=== PATIENT | female | born 1980 | race Caucasian/White ===

== ENCOUNTER 2017-06-14 15:16 | Outpatient (CLI) | payer OTHER, BC ==
--- NOTE | 2017-06-15 10:32 | XRAY Report ---
RIGHT FOOT: 06/14/2017 COMPARISON: None. INDICATION: Right foot pain. FINDINGS: There is a metallic foreign body about the heel. Normal alignment. No evidence of acute fracture. No degenerative findings in other regards. IMPRESSION: RIGHT HEEL FOREIGN BODY. OTHERWISE, NEGATIVE RIGHT FOOT. JOB #: [id number] EXT JOB #: [id number] [facility]
== END 2017-06-14 15:17 | disposition home or self-care (01) ==
LOC: DI.N 15:16
PROVIDERS: ATTEND Physician Assistant Medical
DX: M79.5 Residual foreign body in soft tissue (principal)

== ENCOUNTER 2019-06-30 13:14 | Outpatient (CLI) | payer OTHER, BC ==
--- NOTE | 2019-07-01 12:32 | XRAY Report ---
Reason: SHOULDER PAIN, LEFT Procedure Date: 06/30/2019 Accession Number: [id number] / [id number] Procedure: XRN - Elbow 3 View LT CPT Code: Final Report FULL RESULT: EXAM: LEFT ELBOW RADIOGRAPHY EXAM DATE: 06/30/2019 01:45 PM. CLINICAL HISTORY: Fall on left elbow and shoulder. Pain. COMPARISON: None. TECHNIQUE: 3 views. FINDINGS: Bones: Normal. No fractures or bone lesions. Joints: Normal. No effusion. No subluxation. Soft Tissues: Normal. No soft tissue swelling. IMPRESSION: Normal elbow radiography. [facility]
--- NOTE | 2019-07-01 12:32 | XRAY Report ---
Reason: SHOULDER PAIN, LEFT Procedure Date: 06/30/2019 Accession Number: [id number] / [id number] Procedure: XRN - Shoulder 3 View LT CPT Code: Final Report FULL RESULT: EXAM: LEFT SHOULDER RADIOGRAPHY EXAM DATE: 06/30/2019 01:45 PM. CLINICAL HISTORY: Shoulder pain, left. COMPARISON: None. TECHNIQUE: 3 views. FINDINGS: Bones: Normal. No fracture or bone lesion. Joints: The glenohumeral and acromioclavicular joints are normal. Soft tissues: The visualized hemithorax is unremarkable. No soft tissue swelling. IMPRESSION: Normal shoulder radiography. [facility]
== END 2019-06-30 13:15 | disposition home or self-care (01) ==
LOC: DI.N 13:14
PROVIDERS: ATTEND Physician Assistant Medical
DX: M25.512 Pain in left shoulder (principal); M25.522 Pain in left elbow

== ENCOUNTER 2022-05-25 01:26 | Emergency (ER) | payer OTHER ==
--- NOTE | 2022-05-25 01:46 | ED Physician Documentation ---
PD HPI NVD - Stated complaint Stated Complaint: N/V/ ABD PX - Chief complaint Chief Complaint: Abd Pain - History obtained from History obtained from: Patient - History of Present Illness Timing - onset: Enter time (14:00) Timing - details: Abrupt onset Associated symptoms: Fever, Abdominal pain Improved by: Meds (zofran) Worsened by: Eating Recently seen: Not recently seen - Additonal information Additional information: sudden onset of generalized myalgias at approximately 14:00, subsequently developed nausea and vomiting and epigastric pain with fever Tmax 104. She took zofran with mild improvement Review of Systems Constitutional: reports: Fever Cardiac: reports: Reviewed and negative Respiratory: reports: Reviewed and negative GI: reports: Abdominal Pain, Nausea, Vomiting. denies: Constipation, Diarrhea PD PAST MEDICAL HISTORY - Present Medications Home Medications: Ambulatory Orders Medication Instructions Recorded Confirmed Desvenlafaxine Succinate [Pristiq] 25 mg PO DAILY 05/25/22 05/25/22 FLUoxetine [PROzac] 10 mg PO DAILY 05/25/22 05/25/22 Promethazine [Phenergan] 25 mg PO Q6H PRN #10 tab 05/25/22 traZODone [Desyrel] 50 mg PO DAILY 05/25/22 05/25/22 - Allergies Allergies/Adverse Reactions: Allergies Allergy/AdvReac Type Severity Reaction Status Date / Time No Known Drug Allergies Allergy Verified 05/25/22 01:41 PD ED PE NORMAL - Vitals Vital signs reviewed: Yes - General General: Alert and oriented X 3, No acute distress, Well developed/nourished - Neck Neck: Supple, no meningeal sign - Cardiac Cardiac: RRR, No murmur - Respiratory Respiratory: No respiratory distress, Clear bilaterally - Abdomen Abdomen: Normal bowel sounds, Soft, Non tender Results - Vitals Vitals: Oxygen O2 Source Room air - Labs Labs: Laboratory Tests 05/25/22 05/25/22 05/25/22 01:42 01:47 01:52 WBC 5.3 RBC 4.53 Hgb 14.9 Hct 42.5 MCV 93.8 MCH 32.9 H MCHC 35.1 RDW 12.9 Plt Count 174 MPV 11.0 H Neut # (Auto) 4.3 Lymph # (Auto) 0.6 L [place] # (Auto) 0.3 Eos # (Auto) 0.1 Baso # (Auto) 0.0 Absolute Nucleated RBC 0.00 Nucleated RBC % 0.0 Sodium Potassium Chloride Carbon Dioxide Anion Gap BUN Creatinine Estimated GFR (MDRD) Glucose Calcium Total Bilirubin AST ALT Alkaline Phosphatase Total Protein Albumin Globulin Albumin/Globulin Ratio Lipase Urine Color DARK YELLOW Urine Clarity CLEAR Urine pH 6.0 Ur Specific [place] >=1.030 H Urine Protein TRACE Urine Glucose (UA) NEGATIVE Urine Ketones 40 H Urine Occult Blood NEGATIVE Urine Nitrite NEGATIVE Urine Bilirubin NEGATIVE Urine Urobilinogen 0.2 (NORMAL) Ur Leukocyte Esterase NEGATIVE Ur Microscopic Review NOT INDICATED Urine Culture Comments NOT INDICATED Urine HCG, Qual NEGATIVE Nasal Adenovirus (PCR) Nasal B. parapertussis DNA (PCR) Nasal Coronavir 229E PCR Nasal Coronavir HKU1 PCR Nasal Coronavir NL63 PCR Nasal Coronavir OC43 PCR Nasal Enterovir/Rhinovir PCR Nasal Influenza B PCR Nasal Influenza A PCR Nasal Parainfluen 1 PCR Nasal Parainfluen 2 PCR Nasal Parainfluen 3 PCR Nasal Parainfluen 4 PCR Nasal RSV (PCR) Nasal B.pertussis DNA PCR Nasal C.pneumoniae (PCR) Brian Human Metapneumo PCR Nasal M.pneumoniae (PCR) Nasal SARS-CoV-2 (PCR) 05/25/22 05/25/22 02:21 03:13 WBC RBC Hgb Hct MCV MCH MCHC RDW Plt Count MPV Neut # (Auto) Lymph # (Auto) [place] # (Auto) Eos # (Auto) Baso # (Auto) Absolute Nucleated RBC Nucleated RBC % Sodium 136 Potassium 3.5 Chloride 105 Carbon Dioxide 23 Anion Gap 8.0 BUN 14 Creatinine 0.6 Estimated GFR (MDRD) 109 Glucose 94 Calcium 7.8 L Total Bilirubin 0.6 AST 19 ALT 20 Alkaline Phosphatase 25 L Total Protein 5.8 L Albumin 3.3 Globulin 2.5 Albumin/Globulin Ratio 1.3 Lipase 27 Urine Color Urine Clarity Urine pH Ur Specific [place] Urine Protein Urine Glucose (UA) Urine Ketones Urine Occult Blood Urine Nitrite Urine Bilirubin Urine Urobilinogen Ur Leukocyte Esterase Ur Microscopic Review Urine Culture Comments Urine HCG, Qual Nasal Adenovirus (PCR) NOT DETECTED Nasal B. parapertussis DNA (PCR) NOT DETECTED Nasal Coronavir 229E PCR NOT DETECTED Nasal Coronavir HKU1 PCR NOT DETECTED Nasal Coronavir NL63 PCR NOT DETECTED Nasal Coronavir OC43 PCR NOT DETECTED Nasal Enterovir/Rhinovir PCR DETECTED A Nasal Influenza B PCR NOT DETECTED Nasal Influenza A PCR NOT DETECTED Nasal Parainfluen 1 PCR NOT DETECTED Nasal Parainfluen 2 PCR NOT DETECTED Nasal Parainfluen 3 PCR NOT DETECTED Nasal Parainfluen 4 PCR NOT DETECTED Nasal RSV (PCR) NOT DETECTED Nasal B.pertussis DNA PCR NOT DETECTED Nasal C.pneumoniae (PCR) NOT DETECTED Brian Human Metapneumo PCR NOT DETECTED Nasal M.pneumoniae (PCR) NOT DETECTED Nasal SARS-CoV-2 (PCR) NOT DETECTED PD MEDICAL DECISION MAKING - ED course Complexity details: reviewed results, re-evaluated patient, considered differential, d/w patient ED course: No concerning findings on CBC, ER abdominal panel (mild hypocalcemia noted; normal WBC, normal bilirubin/AST/ALT, normal bun/creatinine). mild ketonuria and high SG on otherwise normal UA. She is given 1 liter NS, 25mg IV phenergan, 15mg IV toradol, 40mg IV protonix. On reevaluation, she reports significant improvement in symptoms. Benign abdominal exam initial and on reevaluation. Respiratory PCR panel is positive for enterovirus/rhinovirus. At this time, no further testing is indicated (such as imaging of abdomen). Results d/w patient, return precautions reviewed. Prescription for phenergan is submitted to [facility] pharmacy. Departure - Departure Disposition: 01 Home, Self Care Clinical Impression: Viral syndrome Condition: Good Instructions: Enteroviruses, ED Viral Syndrome Prescriptions: Promethazine [Phenergan] 25 mg PO Q6H PRN #10 tab PRN Reason: Nausea / Vomiting Comments: You tested positive for adenovirus/enterovirus. The other viral tests were negative (including COVID, influenza). A prescription for phenergan (anti-nausea medication) has been electronically submitted to [facility] pharmacy in [place]. Discharge Date/Time: 05/25/22 04:59
[2022-05-25 01:57] LABS: GLUCOSE, URINE (UA) NEGATIVE (NEGATIVE); KETONES,URINE (UA) 40 mg/dL (NEGATIVE); LEUKOCYTE ESTERASE, URINE NEGATIVE (NEGATIVE); NITRITE,URINE NEGATIVE (NEGATIVE); OCCULT BLOOD,URINE NEGATIVE (NEGATIVE); PROTEIN,URINE TRACE mg/dL (NEGATIVE); UROBILINOGEN,URINE 0.2 (NORMAL) E.U./dL (NORMAL)
[2022-05-25 02:00] LABS: BILIRUBIN,URINE NEGATIVE (NEGATIVE); CLARITY,URINE CLEAR (CLEAR); ICTOTEST,URINE NEGATIVE
[2022-05-25 02:00] LABS: HCG UR QUAL NEGATIVE
[2022-05-25] MEDS ORDERED: PANTOPRAZOLE 40 MG VIAL IVP STA (02:07)
[2022-05-25] MEDS ORDERED: PROMETHAZINE INJ 25 MG in SODIUM CHLORIDE 0.9% 50 ML IV STA (02:07)
[2022-05-25] MEDS ORDERED: KETOROLAC 15 MG/ML VIAL IVP STA (02:08)
[2022-05-25 02:12] LABS: BASOPHILS % (AUTO) 0.2 %; EOSINOPHILS # (AUTO) 0.1 10^3/uL (0.0-0.7); EOSINOPHILS % (AUTO) 1.5 %; HCT - HEMATOCRIT 42.5 % (37.0-47.0); HGB - HEMOGLOBIN 14.9 g/dL (12.0-16.0); LYMPHOCYTES # (AUTO) 0.6 10^3/uL (1.5-3.5); LYMPHOCYTES % (AUTO) 11.2 %; MEAN CORPUSCULAR HEMOGLOBIN 32.9 pg (27.0-31.0); MEAN CORPUSCULAR HGB CONC 35.1 g/dL (32.0-36.0); MEAN CORPUSCULAR VOLUME 93.8 fL (81.0-99.0); MONOCYTES # (AUTO) 0.3 10^3/uL (0.0-1.0); MONOCYTES % (AUTO) 5.7 %; NEUTROPHILS # (AUTO) 4.3 10^3/uL (1.5-6.6); NEUTROPHILS % (AUTO) 81.2 %; PLT - PLATELET COUNT 174 10^3/uL (130-450); RED BLOOD COUNT 4.53 10^6/uL (4.20-5.40); RED CELL DISTRIBUTION WIDTH 12.9 % (12.0-15.0); WHITE BLOOD COUNT 5.3 x10^3/uL (4.8-10.8)
[2022-05-25] MEDS ORDERED: PROMETHAZINE 25 MG/1 ML VIAL ONE (02:13)
[2022-05-25 02:40] LABS: ALBUMIN 3.3 g/dL (3.2-5.5); ALBUMIN/GLOBULIN RATIO 1.3 (1.0-2.2); BILIRUBIN,TOTAL 0.6 mg/dL (0.2-1.0); CALCIUM 7.8 mg/dL (8.5-10.3); CREATININE 0.6 mg/dL (0.4-1.0); POTASSIUM 3.5 mmol/L (3.5-5.0); TOTAL PROTEIN 5.8 g/dL (6.7-8.2)
[2022-05-25] MEDS ORDERED: SODIUM CHLORIDE 0.9% 1,000 ML IV STA (03:15)
[2022-05-25 04:46] LABS: B. PARAPERTUSSIS- RESP PCR PAN NOT DETECTED; B. PERTUSSIS- RESP PCR PANEL NOT DETECTED; C. PNEUMONIAE- RESP PCR PANEL NOT DETECTED; CORONAVIRUS 229E-RESP PCR NOT DETECTED; CORONAVIRUS HKU1-RESP PCR NOT DETECTED; CORONAVIRUS NL63-RESP PCR NOT DETECTED; CORONAVIRUS OC43-RESP PCR NOT DETECTED; HUMAN METAPNEUMOVIRUS NOT DETECTED; INFLUENZA A- RESP PCR PANEL NOT DETECTED; INFLUENZA B - RESP PCR PANEL NOT DETECTED; M. PNEUMONIAE- RESP PCR PANEL NOT DETECTED; PARAINFLUENZA VIRUS 1 NOT DETECTED; PARAINFLUENZA VIRUS 2 NOT DETECTED; PARAINFLUENZA VIRUS 3 NOT DETECTED; PARAINFLUENZA VIRUS 4 NOT DETECTED; RHINOVIRUS/ENTEROVIRUS DETECTED; RSV- RESP PCR PANEL NOT DETECTED; SARS-CoV-2 -RESP PCR PANEL NOT DETECTED
[2022-05-25 05:00] VITALS: BP 99/71
== END 2022-05-25 04:59 | disposition home or self-care (01) ==
LOC: ED 01:26
DX: B34.9 Viral infection, unspecified (principal); Z20.822 Contact with and (suspected) exposure to COVID-19
CPT/HCPCS: 36415; 80053; 81003; 81025; 83690; 85025; 87633; 96361; 96365; 96375; 99282; 99284; J7040; 81001; 87086

== ENCOUNTER 2024-03-14 12:46 | Outpatient (CLI) | payer OTHER ==
--- NOTE | 2024-03-15 07:07 | XRAY Report ---
PROCEDURE: Knee 4+V BL INDICATIONS: CHRONIC KNEE JOINT PAIN TECHNIQUE: 3 views of the knee(s) were acquired. COMPARISON: None. FINDINGS: Bones: No fractures or dislocations. No suspicious bony lesions. No significant osteophytes. Soft tissues: Small knee joint effusion. No suspicious soft tissue calcifications or masses. IMPRESSION: No acute bony abnormality. No significant osteoarthritis. Reviewed by: Remberto Spann MD on 03/15/2024 7:05 AM PDT Approved by: Remberto Spann MD on 03/15/2024 7:05 AM PDT Station ID: [id number]
== END 2024-03-14 12:47 | disposition home or self-care (01) ==
LOC: DI 12:46
PROVIDERS: ATTEND Nurse Practitioner
DX: M25.561 Pain in right knee (principal); M25.562 Pain in left knee